=== PATIENT | male | born 1960 | race Caucasian/White ===

== ENCOUNTER 2017-11-03 00:27 | Emergency (ER) | payer BC ==
[2017-11-03] MEDS ORDERED: fentaNYL PF VIAL 100 MCG/2 ML VIAL (00:55)
[2017-11-03] MEDS ORDERED: ONDANSETRON PF 4 MG/2 ML VIAL. (00:55)
[2017-11-03 00:56] LABS: ADD MAN DIFF? NO
[2017-11-03] MEDS: ONDANSETRON PF 4 MG/2 ML VIAL. IV ×2 (00:57→03:00)
[2017-11-03] MEDS: fentaNYL PF VIAL 100 MCG/2 ML VIAL IV ×2 (00:58→02:18)
[2017-11-03] MEDS: IV NORMAL SALINE 1000ML BAG 1,000 ML IV (00:58)
[2017-11-03 01:00] LABS: BASO # 0.1 x10^3/uL (0.0-0.2); BASO % 1 % (0-3); EOS % 0 % (0-3); HEMATOCRIT 46.4 % (39.0-53.0); HEMOGLOBIN 16.1 g/dL (13.0-17.5); LYMPH # 1.4 x10^3/uL (1.0-4.8); LYMPH % 15 % (24-48); MEAN CORPUSCULAR HEMOGLOBIN 30 pg (25-35); MEAN CORPUSCULAR HGB CONC 35 g/dL (31-37); MEAN CORPUSCULAR VOLUME 86 fL (79-100); MONO # 0.7 x10^3/uL (0.0-1.1); MONO % 8 % (0-9); NEUT # 7.3 x10^3uL (1.8-7.7); NEUT % 77 % (31-73); PLATELET COUNT 315 x10^3/uL (140-400); RED BLOOD COUNT 5.41 x10^6/uL (4.30-5.70); RED CELL DISTRIBUTION WIDTH 13.6 % (11.5-14.5); WHITE BLOOD COUNT 9.5 x10^3/uL (4.0-11.0)
[2017-11-03 01:02] LABS: BILIRUBIN,URINE NEGATIVE (NEG); CLARITY,URINE CLEAR; COLOR,URINE YELLOW; GLUCOSE,URINE NEGATIVE (NEG); NITRITE,URINE NEGATIVE (NEG); PH,URINE 5.5; PROTEIN,URINE NEGATIVE (NEG-TRACE); UROBILINOGEN,URINE 0.2 mg/dL (0.2 mg/dL)
[2017-11-03 01:07] LABS: BACTERIA,URINE 0 /HPF (0-FEW); HYALINE CASTS, URINE FEW /HPF; SQUAMOUS EPITHELIAL CELL,UR OCC /LPF; WBC,URINE 0 /HPF (0-4)
[2017-11-03 01:10] LABS: ANION GAP 11 (6-14); BLOOD UREA NITROGEN 13 mg/dL (8-26); BUN/CREATININE RATIO 14 (6-20); CALCIUM 9.6 mg/dL (8.5-10.1); CARBON DIOXIDE 29 mmol/L (21-32); CHLORIDE 96 mmol/L (98-107); CREATININE 0.9 mg/dL (0.7-1.3); GLUCOSE 140 mg/dL (70-99); POTASSIUM 4.3 mmol/L (3.5-5.1); SODIUM 136 mmol/L (136-145)
[2017-11-03 01:16] LABS: ALBUMIN 3.9 g/dL (3.4-5.0); ALBUMIN/GLOBULIN RATIO 1.3 (1.0-1.7); ALK PHOS 128 U/L (46-116); ALT (SGPT) 30 U/L (16-63); AST (SGOT) 23 U/L (15-37); LIPASE 92 U/L (73-393); TOTAL BILIRUBIN 0.5 mg/dL (0.2-1.0); TOTAL PROTEIN 6.9 g/dL (6.4-8.2)
[2017-11-03 01:20] LABS: TROPONINI < 0.017 ng/mL (0.000-0.055)
[2017-11-03 01:23] LABS: CKMB INDEX 1.7 % (0-4); CREATINE KINASE 118 U/L (39-308)
[2017-11-03] MEDS ORDERED: CONTRAST GIVEN MC (01:30)
[2017-11-03] MEDS: IOHEXOL 300 MG/ML 100ML VIAL. IV (01:43)
[2017-11-03] MEDS: LABETALOL 20 MG/4 ML DISP.SYRIN. IVP (03:00)
[2017-11-03] MEDS: HYDROmorphone 2 MG/ML VIAL IV (03:00)
[2017-11-03] MEDS: CIPROFLOXACIN HCL 250 MG TABLET. PO (04:06)
[2017-11-03] MEDS: KETOROLAC 30 MG/ML INJ. IV (04:07)
[2017-11-03] MEDS: LISINOPRIL 10 MG TABLET PO (04:07)
[2017-11-03] MEDS: TAMSULOSIN 0.4 MG CAP.ER.24H. PO (04:09)
== END 2017-11-03 04:32 | disposition home or self-care (01) ==
LOC: ER 00:27
DX: N13.2 Hydronephrosis with renal and ureteral calculous obstruction (principal); I10 Essential (primary) hypertension
CPT/HCPCS: 36415; 74177; 80053; 81001; 82553; 83690; 84484; 85025; 93005; 96361; 96374; 96375; 96376; 99285-25; J1170; J1885; J2405; J3010; J3490; J7030; Q9967